=== PATIENT | female | born 2000 | race Caucasian/White ===

== ENCOUNTER 2023-02-01 17:23 | Emergency (ER) | payer OTHER, BC ==
[~2023-02-01] VITALS: Ht 162.6 cm; Wt 74.0 kg
[2023-02-01 17:48] VITALS: BP 120/88
== END 2023-02-01 20:49 | disposition left against medical advice (07) ==
LOC: ER 17:24
DX: M79.604 Pain in right leg (principal); M79.641 Pain in right hand; Z53.21 Procedure and treatment not carried out due to patient leaving prior to being seen by health care provider
CPT/HCPCS: 73130; 73590; 99281